=== PATIENT | male | born 1990 | race Caucasian/White ===

== ENCOUNTER 2018-07-14 12:02 | Emergency (ER) | payer BC, OTHER ==
[2018-07-14 12:13] VITALS: RESP 18
[2018-07-14] MEDS ORDERED: PENICILLIN VK 500MG STARTER 4 TAB BTL PO STA (14:04)
--- NOTE | 2018-07-14 14:04 | ED ---
General Adult HPI - General Chief complaint: Dental/Oral Stated complaint: Facial swelling Time Seen by Provider: 07/14/18 13:07 Source: patient, RN notes reviewed Mode of arrival: ambulatory Limitations: no limitations - History of Present Illness Initial comments: 27-year-old male presents for dental pain times one day. Patient states he woke up around 2 AM and had swelling and pain of his left lower jaw. Patient states he did try to follow-up with his dentist but they could not get him in for 2 weeks. Patient's dentist is out of [place]. Patient denies any swelling of the tongue. Denies any stiffness of the neck. No difficulty swallowing.Patient has no other complaints at this time including shortness of breath, chest pain, abdominal pain, nausea or vomiting, headache, or visual changes. - Related Data Previous Rx's Medication Instructions Recorded Penicillin V Potassium [Pen Vee K] 500 mg PO Q6H 10 Days #40 tablet 07/14/18 Allergies Allergy/AdvReac Type Severity Reaction Status Date / Time No Known Allergies Allergy Verified 07/14/18 13:07 Review of Systems ROS Statement: Those systems with pertinent positive or pertinent negative responses have been documented in the HPI. ROS Other: All systems not noted in ROS Statement are negative. Past Medical History Past Medical History: No Reported History History of Any Multi-Drug Resistant Organisms: None Reported Past Surgical History: No Surgical Hx Reported Past Psychological History: ADD/ADHD, Bipolar, Depression Smoking Status: Current every day smoker Past Alcohol Use History: None Reported Past Drug Use History: None Reported General Exam Limitations: no limitations General appearance: alert, in no apparent distress Head exam: Present: atraumatic, normocephalic, normal inspection Eye exam: Present: normal appearance, PERRL, EOMI. Absent: scleral icterus, conjunctival injection, periorbital swelling ENT exam: Present: mucous membranes moist, TM's normal bilaterally, normal external ear exam. Absent: normal oropharynx (Very poor dentition noted Especially in left lower molars. Patient has localized swelling of the left mandible. Possible small abscess noted.) Neck exam: Present: normal inspection, full ROM. Absent: tenderness, meningismus, lymphadenopathy Respiratory exam: Present: normal lung sounds bilaterally. Absent: respiratory distress, wheezes, rales, rhonchi, stridor Cardiovascular Exam: Present: regular rate, normal rhythm, normal heart sounds. Absent: systolic murmur, diastolic murmur, rubs, gallop, clicks Neurological exam: Present: alert, oriented X3, CN II-XII intact Psychiatric exam: Present: normal affect, normal mood Course Vital Signs 07/14/18 07/14/18 12:10 14:16 Temperature 98.0 F 99.2 F Pulse Rate 88 69 Respiratory 18 18 Rate Blood Pressure 125/81 131/85 O2 Sat by Pulse 100 100 Oximetry Procedures - Incision & Drainage Site: other (gum) Medical Decision Making - Medical Decision Making 27-year-old male presents to the emergency department for left mandibular swelling due to dental infection. Patient states this started around 2 AM. Patient denies any swelling below the tongue. Denies any difficulty swallowing or neck stiffness. No fevers or chills. On exam patient has very poor dentition of the left lower molars in particular. He does have swelling along these molars. There is a small area of possible abscess noted that I did attempt to drain with an 18-gauge needle however no purulent material expelled, likely just due to swelling. Patient was penicillin. He was given a starter pack here. He was educated to follow-up with the dentist as soon as possible. He will return here if symptoms are worsening instead of improving or he develops high fevers. Disposition Clinical Impression: Pain, dental Disposition: HOME SELF-CARE Condition: Good Instructions (If sedation given, give patient instructions): Toothache (ED) Additional Instructions: Please take penicillin as directed. Please follow-up with your dentist at [facility] in one to 2 days. Return here to the emergency department if you have any worsening symptoms. Prescriptions: Penicillin V Potassium [Pen Vee K] 500 mg PO Q6H 10 Days #40 tablet Is patient prescribed a controlled substance at d/c from ED?: No Referrals: Sylvester De La Cruz MD [Primary Care Provider] - 1-2 days Time of Disposition: 14:03
[2018-07-14 14:16] VITALS: BP 131/85; PULSE 69; TEMP 99.2
== END 2018-07-14 14:16 | disposition home or self-care (01) ==
LOC: EC 12:02
DX: K08.89 Other specified disorders of teeth and supporting structures (principal); F17.200 Nicotine dependence, unspecified, uncomplicated
CPT/HCPCS: 41800; 99283

== ENCOUNTER 2021-04-24 14:12 | Emergency (ER) | payer OTHER ==
[2021-04-24 14:33] VITALS: BP 135/80; TEMP 98.5
--- NOTE | 2021-04-24 15:15 | ED ---
General Adult HPI - General Chief complaint: Recheck/Abnormal Lab/Rx Stated complaint: Exposure Time Seen by Provider: 04/24/21 14:34 Source: patient Mode of arrival: ambulatory Limitations: no limitations - History of Present Illness Initial comments: 30-year-old male presents to the emergency room for a chief complaint of COVID- 19 test. Patient states his roommate is positive for COVID-19 and wants to get tested. Patient does not have any symptoms. Patient is otherwise well feeling.Patient has no other complaints at this time including shortness of breath, chest pain, abdominal pain, nausea or vomiting, headache, or visual changes. - Related Data Previous Rx's Medication Instructions Recorded Penicillin V Potassium [Pen Vee K] 500 mg PO Q6H 10 Days #40 tablet 07/14/18 Allergies Allergy/AdvReac Type Severity Reaction Status Date / Time No Known Allergies Allergy Verified 04/24/21 14:33 Review of Systems ROS Statement: Those systems with pertinent positive or pertinent negative responses have been documented in the HPI. ROS Other: All systems not noted in ROS Statement are negative. Past Medical History Past Medical History: No Reported History History of Any Multi-Drug Resistant Organisms: None Reported Past Surgical History: No Surgical Hx Reported Past Psychological History: ADD/ADHD, Bipolar, Depression Smoking Status: Current every day smoker Past Alcohol Use History: Rare Past Drug Use History: Marijuana General Exam Limitations: no limitations General appearance: alert, in no apparent distress Head exam: Present: atraumatic Eye exam: Present: normal appearance, PERRL, EOMI. Absent: scleral icterus, conjunctival injection ENT exam: Present: normal exam, mucous membranes moist Neck exam: Present: normal inspection, full ROM. Absent: tenderness Respiratory exam: Present: normal lung sounds bilaterally. Absent: respiratory distress, wheezes Cardiovascular Exam: Present: regular rate, normal rhythm, normal heart sounds GI/Abdominal exam: Present: soft, normal bowel sounds. Absent: distended, tenderness Neurological exam: Present: alert Course Vital Signs 04/24/21 14:29 Temperature 98.5 F Pulse Rate 73 Respiratory 18 Rate Blood Pressure 135/80 O2 Sat by Pulse 99 Oximetry Medical Decision Making - Medical Decision Making Vitals are stable. Patient is positive for COVID-19. Currently priority guidelines are being utilized for antibody infusion. Therefore patient does not qualify. He is stable for outpatient follow-up with [id number] cold and flu medications. - Lab Data Lab Results 04/24/21 Range/Units 14:34 Coronavirus (PCR) Detected A (Not Detectd) Disposition Clinical Impression: COVID-19 Disposition: HOME SELF-CARE Condition: Good Instructions (If sedation given, give patient instructions): Coronavirus Disease 2019 (COVID-19) Additional Instructions: Please follow up with your doctor in one to 2 days. In the meantime take [id number] cold and flu medication as well as vitamin D and zinc. Return to the emergency room for any shortness of breath. Is patient prescribed a controlled substance at d/c from ED?: No Referrals: Adalberto Swift DO [Primary Care Provider] - 1-2 days Time of Disposition: 15:15
[2021-04-24 15:23] VITALS: PULSE 73; RESP 18
== END 2021-04-24 15:25 | disposition home or self-care (01) ==
LOC: EC 14:12
DX: U07.1 COVID-19 (principal); F17.200 Nicotine dependence, unspecified, uncomplicated
CPT/HCPCS: 87635; 99283

== ENCOUNTER 2021-05-05 13:47 | Emergency (ER) | payer OTHER ==
[2021-05-05 14:17] VITALS: BP 124/80; PULSE 89; RESP 18; TEMP 97.7
--- NOTE | 2021-05-05 15:12 | ED ---
General Adult HPI - General Chief complaint: Recheck/Abnormal Lab/Rx Stated complaint: Covid Test Time Seen by Provider: 05/05/21 14:57 Source: patient, RN notes reviewed Mode of arrival: ambulatory Limitations: no limitations - History of Present Illness Initial comments: 30-year-old male presents to the emergency department requesting a Covid test. Patient states he tested positive for COVID two weeks ago and requires a negative test to return to work. Patient states he is symptom free and has no additional complaints at this time. - Related Data Previous Rx's Medication Instructions Recorded Penicillin V Potassium [Pen Vee K] 500 mg PO Q6H 10 Days #40 tablet 07/14/18 Allergies Allergy/AdvReac Type Severity Reaction Status Date / Time No Known Allergies Allergy Verified 05/05/21 14:17 Review of Systems ROS Statement: Those systems with pertinent positive or pertinent negative responses have been documented in the HPI. ROS Other: All systems not noted in ROS Statement are negative. Past Medical History Past Medical History: No Reported History History of Any Multi-Drug Resistant Organisms: None Reported Past Surgical History: No Surgical Hx Reported Past Psychological History: ADD/ADHD, Bipolar, Depression Smoking Status: Current every day smoker Past Alcohol Use History: Rare Past Drug Use History: Marijuana General Exam Limitations: no limitations (Well-developed, well-nourished male in no acute distress. Initial temperature 97.7, pulse 89, respirations 18, blood pressure 124/80, pulse ox 99% on room air.) General appearance: alert, in no apparent distress ENT exam: Present: normal exam, mucous membranes moist Respiratory exam: Present: normal lung sounds bilaterally. Absent: respiratory distress, wheezes, rales, rhonchi, stridor Cardiovascular Exam: Present: regular rate, normal rhythm, normal heart sounds. Absent: systolic murmur, diastolic murmur, rubs, gallop, clicks GI/Abdominal exam: Present: soft, normal bowel sounds. Absent: distended, tenderness, guarding, rebound, rigid Neurological exam: Present: alert, oriented X3, CN II-XII intact Psychiatric exam: Present: normal affect, normal mood Skin exam: Present: warm, dry, intact, normal color. Absent: rash Course Vital Signs 05/05/21 14:12 Temperature 97.7 F Pulse Rate 89 Respiratory 18 Rate Blood Pressure 124/80 O2 Sat by Pulse 99 Oximetry Medical Decision Making - Medical Decision Making 30-year-old male with a recent diagnosis of COVID-19 presents to the emergency department requesting a Covid test. Upon exam, patient is well-appearing and in no acute distress. Physical exam findings are unremarkable. Patient has been symptom free for 5 days. Covid test is positive. Discussed the possibility that he may continue to test positive for an indefinite amount of time in the future. Encouraged him to discuss a return to work plan with his employer that was in alignment with current CDC recommendations. Suggested follow-up care with PCP if needed. Return parameters were discussed in detail. Patient verbalizes understanding and agrees with this plan. This patient's care was supervised by my attending, Dr. Cage. - Lab Data Lab Results 05/05/21 Range/Units 14:17 Coronavirus (PCR) Detected A (Not Detectd) Disposition Clinical Impression: Normal exam, COVID-19 Disposition: HOME SELF-CARE Condition: Stable Instructions (If sedation given, give patient instructions): Normal Exam (ED) Additional Instructions: Though you did test positive for Covid, you are beyond the 14 day quarantine. Because you no longer have symptoms, you are clear to return to work. However, you may continue to test positive therefore defer to your employer for return to work instructions. Follow-up with your PCP for a recheck as needed. 10 to the emergency department with any new, worsening, or concerning symptoms. Is patient prescribed a controlled substance at d/c from ED?: No Referrals: Adalberto Swift DO [Primary Care Provider] - 1-2 days Time of Disposition: 15:12
== END 2021-05-05 15:22 | disposition home or self-care (01) ==
LOC: EC 13:47
DX: Z20.822 Contact with and (suspected) exposure to COVID-19 (principal)
CPT/HCPCS: 87635